=== PATIENT | female | born 1980 | race Caucasian/White ===

== ENCOUNTER 2017-09-07 08:00 | Emergency (ER) | payer OTHER ==
[~2017-09-07] VITALS: Ht 165.1 cm; Wt 111.6 kg
[2017-09-07] MEDS ORDERED: IV NORMAL SALINE 1,000ML 1,000 ML IV SCH (08:17)
--- NOTE | 2017-09-07 08:22 | EKG ---
[address] [address] Test Date: 2017-09-07 Test Time: 08:03:26 Pat Name: BINDU CORRAL Department: Room: Gender: F Poultry Cleaner: : 1980 Requested By: BERTRAND MENON Order Number: [id number] Reading MD: Shay Roth MD Measurements Intervals [place] Rate: 91 P: -22 NC: 128 QRS: 10 QRSD: 96 T: 13 QT: 354 QTc: 437 Interpretive Statements SINUS RHYTHM Electronically Signed On 09-07-2017 16:37:13 CDT by Shay Roth MD
[2017-09-07 08:33] LABS: BASO # 0.1 x10^3/uL (0.0-0.2); BASO % 1 % (0-3); EOS # 0.2 x10^3/uL (0.0-0.7); EOS % 2 % (0-3); HEMATOCRIT 39.4 % (36.0-47.0); HEMOGLOBIN 13.7 g/dL (12.0-15.5); LYMPH # 2.7 x10^3/uL (1.0-4.8); LYMPH % 30 % (24-48); MEAN CORPUSCULAR HEMOGLOBIN 30 pg (25-35); MEAN CORPUSCULAR HGB CONC 35 g/dL (31-37); MEAN CORPUSCULAR VOLUME 86 fL (79-100); MONO # 0.6 x10^3/uL (0.0-1.1); MONO % 7 % (0-9); NEUT # 5.6 x10^3uL (1.8-7.7); NEUT % 61 % (31-73); PLATELET COUNT 253 x10^3/uL (140-400); RED CELL DISTRIBUTION WIDTH 12.9 % (11.5-14.5); WHITE BLOOD COUNT 9.2 x10^3/uL (4.0-11.0)
--- NOTE | 2017-09-07 08:41 | PHYS DOC ---
Past History Past Medical History: Anxiety, Depression, Diabetes, Hypertension Past Surgical History: Other Alcohol Use: None Drug Use: None Adult General Chief Complaint Chief Complaint: RAPID HEART RATE HPI HPI 37-year-old female presents with rapid heart rate and chest pain. The patient woke up this morning with a fast, pounding heart rate and chest pressure. She states that she attempted Valsalva maneuvers for about 10 minutes and her heart rate slowed down. She continues to have chest tightness that radiates to her shoulder blades. The pain was 6 out of 10 at its worse and is now 4 out of 10. She has had shortness of breath with this pain, but no diaphoresis. She denies cough. The patient had one similar episode to this 7 years ago where she had high heart rate was nearly 200. She was given adenosine which corrected her heart rate. She's had no further treatment since. The patient is diabetic and her blood sugars have been 300s lately. The patient has had a lot of stress lately. She denies alcohol or excessive caffeine use. She admits to rare marijuana use. She denies any other drugs. Review of Systems Review of Systems Constitutional: Denies fever or chills [] Eyes: Denies change in visual acuity, redness, or eye pain [] HENT: Denies nasal congestion or sore throat [] Respiratory: Denies cough or shortness of breath [] Cardiovascular: No additional information not addressed in HPI [] GI: Denies abdominal pain, nausea, vomiting, bloody stools or diarrhea [] : Denies dysuria or hematuria [] Musculoskeletal: Denies back pain or joint pain [] Integument: Denies rash or skin lesions [] Neurologic: Denies headache, focal weakness or sensory changes [] Endocrine: elevated blood sugar [] All other systems were reviewed and found to be within normal limits, except as documented in this note. Current Medications Current Medications Current Medications Medications (Trade) Dose Ordered Sig/Catracho Start Time Stop Time Status Last Admin Dose Admin Sodium Chloride 1,000 ml @ 1,000 mls/hr Q1H 09/07/17 08:17 09/07/17 09:16 09/07/17 08:24 1,000 MLS/HR Allergies Allergies Allergies Coded Allergies Type Severity Reaction Last Updated Verified aspirin Allergy Unknown 09/07/17 Yes Physical Exam Physical Exam Constitutional: Well developed, well nourished, obese, no acute distress, non- toxic appearance. [] HENT: Normocephalic, atraumatic, bilateral external ears normal, oropharynx moist, no oral exudates, nose normal. [] Eyes: PERRLA, EOMI, conjunctiva normal, no discharge. [] Neck: Normal range of motion, no tenderness, supple, no stridor. [] Cardiovascular:Heart rate regular rhythm, no murmur [] Lungs & Thorax: Bilateral breath sounds clear to auscultation [] Abdomen: Bowel sounds normal, soft, no tenderness, no masses, no pulsatile masses. [] Skin: Warm, dry, no erythema, no rash. [] Back: No tenderness, no CVA tenderness. [] Extremities: No tenderness, no cyanosis, no clubbing, ROM intact, no edema. [] Neurologic: Alert and oriented X 3, normal motor function, normal sensory function, no focal deficits noted. [] Psychologic: Affect normal, judgement normal, mood normal. [] Current Patient Data Vital Signs Vital Signs Date Time Temp Pulse Resp B/P (MAP) Pulse Ox O2 Delivery O2 Flow Rate FiO2 09/07/17 08:10 97.9 94 16 96 Room Air EKG EKG Sinus rhythm, rate 91, no ST elevations or depressions.[] Radiology/Procedures Radiology/Procedures Chest, 2 views, 09/07/2017: HISTORY: Tachycardia, chest pain The heart size and pulmonary vascularity are normal. No pulmonary infiltrate is seen. There is no evidence of pleural fluid. IMPRESSION: No acute cardiopulmonary abnormality is detected. Electronically signed by: Leonard Lance MD (09/07/2017 8:43 AM) [facility] DICTATED AND SIGNED BY: LEONARD LANCE MD DATE: 09/07/17 8058[] Course & Med Decision Making Course & Med Decision Making Pertinent Labs and Imaging studies reviewed. (See chart for details) Patient's labs are remarkable for a glucose of 346. Her anion gap is normal. Her troponin is negative. Her other labs are unremarkable. Her EKG is reassuring. Chest x-rays unremarkable. We have not seen any arrhythmia or rapid heart rate since the patient was hooked up to the monitor. She is feeling better at this time. The patient continued observation with repeat labs versus going home and she has elected to go home. If her symptoms return or any new symptoms develop, she will return to the emergency room. She will work with her PCP counselor education professor to improve her blood sugar. [] Dragon Disclaimer Dragon Disclaimer This electronic medical record was generated, in whole or in part, using a voice recognition dictation system. BERTRAND MENON DO Sep 07, 2017 08:41
[2017-09-07 08:45] LABS: ALBUMIN 3.5 g/dL (3.4-5.0); CALCIUM 8.3 mg/dL (8.5-10.1); CREATININE 0.6 mg/dL (0.6-1.0); GFR 111.9; POTASSIUM 3.6 mmol/L (3.5-5.1); TOTAL BILIRUBIN 0.3 mg/dL (0.2-1.0); TOTAL PROTEIN 6.9 g/dL (6.4-8.2)
--- NOTE | 2017-09-07 08:46 | RAD ---
Chest, 2 views, 09/07/2017: HISTORY: Tachycardia, chest pain The heart size and pulmonary vascularity are normal. No pulmonary infiltrate is seen. There is no evidence of pleural fluid. IMPRESSION: No acute cardiopulmonary abnormality is detected. Electronically signed by: Leonard Lance MD (09/07/2017 8:43 AM) [facility]
[2017-09-07 09:11] VITALS: BP 142/83
== END 2017-09-07 09:33 | disposition home or self-care (01) ==
LOC: ER 08:00
DX: R07.89 Other chest pain (principal); E11.65 Type 2 diabetes mellitus with hyperglycemia; F41.9 Anxiety disorder, unspecified; F32.9 Major depressive disorder, single episode, unspecified; I10 Essential (primary) hypertension; Z88.6 Allergy status to analgesic agent
CPT/HCPCS: 36415; 71046; 80053; 84484; 85025; 93005; 99285-25; J7030